=== PATIENT | male | born 1975 | race Caucasian/White ===

== ENCOUNTER 2024-07-14 20:02 | Emergency (ER) | payer MEDICAID, SELFPAY ==
[2024-07-14 20:10] VITALS: BP 159/68; PULSE 94; RESP 18; O2SAT 98
--- NOTE | 2024-07-14 20:15 | DI.RAD_ITS ---
Exam(s) XR KNEE LT 3V AP,LAT,KATALINA EXAM: XR KNEE LT 3V AP,LAT,KATALINA CLINICAL HISTORY: Pain, swelling. TECHNIQUE: 2D digital imaging was performed of the left knee. Three images were obtained. AP, late ral and PA tunnel views were obtained. COMPARISON: No exams were available for comparison FINDINGS: BONES: No acute fracture is present. No bony destructive lesion is seen. JOINTS: Minimal degenerative changes are present. There is a small joint effusion. No loose body. SOFT TISSUE: Normal. IMPRESSION: Small joint effusion. No acute fracture or dislocation. DATA REPOSITORY: RADIATION DOSE DELIVERED:
--- NOTE | 2024-07-14 20:43 | ED.GENADUL_ITS ---
Discharge Plan Disposition Patient Disposition: Home Condition: Stable Discharge Details Clinical Impression: Pain and swelling of left knee, Prepatellar effusion of left knee Primary Care Provider: Umer Kearney ED Provider: Lyssa Silvestre Home Meds and New Rx's Prescriptions: New diclofenac sodium [Arthritis Pain (diclofenac)] 1 % gel 4.5 inch topical QID PRN (Reason: pain) 7 Days Qty: 100 0RF Rx Instructions: apply to single knee, 4 times a day as needed No Action gabapentin 300 mg capsule 600 mg PO TID bupropion HCl [Wellbutrin XL] 150 mg tablet extended release 24 hr 150 mg PO DAILY Discharge Instructions Instructions: Ross's Cyst (DC), Knee Pain ED Additional Instructions: You have a small amount of fluid noted on the x-ray. No broken bones. I do suspect a Ross's cyst and possibly more internal injury. Please follow-up with orthopedics within the next 1 to 2 weeks. Wear the knee brace as needed for discomfort. Take the medication with food as directed. Rest ice compression elevation when sitting or laying down. Ice knee at least 3 times a day. Follow up with orthopedics/primary care provider in 1 to 2 weeks . Return to ED sooner if any worsening or concerns. Referrals: Humberto Cladwell MD [ [facility] STAFF PHYSICIAN] - 2 weeks HPI General Mode of arrival: ambulatory . Date/Time Provider Initiated Documentation: 07/14/24 20:14 . Limitations to Documentation: no limitations . Information obtained by: patient, RN notes reviewed and old records reviewed . 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 He also has noted a ball to his popliteal space. He reports that he has increased pain with flexion. He has been taking Tylenol and Advil at home with little to no relief. He reports that he has had trouble sleeping. He denies any calf pain no redness negative Homans' sign. He was referred to PT by his primary care which he has never gotten into. He reports that he has had a meniscus tear with repair in the past to that same knee. Denies any other associated complaints. Related Data Home Medications ?Medication ?Instructions ?Recorded ?Confirmed bupropion HCl 150 mg 24 hr tablet, 150 mg PO DAILY 07/14/24 07/14/24 extended release (Wellbutrin XL) diclofenac sodium 1 % topical gel 4.5 inch topical QID PRN pain 7 07/14/24 (Arthritis Pain (diclofenac)) days #100 grams gabapentin 300 mg capsule 600 mg PO TID 07/14/24 07/14/24 Previous Rx's ?Medication ?Instructions ?Recorded diclofenac sodium 1 % topical gel 4.5 inch topical QID PRN pain 7 07/14/24 (Arthritis Pain (diclofenac)) days #100 grams Allergies Allergy/AdvReac Type Severity Reaction Status Date / Time No Known Allergies Allergy Unverified 07/14/24 20:13 General Stated Complaint: Orthopedic PEDRO: 4 Review of Systems All systems reviewed & are unremarkable except as noted in HPI and below Musculoskeletal Musculoskeletal: Reports as per HPI, Reports arthralgias, Reports joint swelling and Denies numbness Neurologic Neurologic: Denies numbness Exam Extrem Right lower extremity: knee Left lower extremity: knee Details: abnormal to inspection, tenderness Location: of the popliteal fossa and of the medial joint line, swelling Location: of the popliteal fossa and of the pre-patellar area and abnormal ROM; no ecchymosis Course Vital Signs Vital signs: Vital Signs Pulse 94 H 07/14/24 20:10 Respiratory Rate 18 07/14/24 20:10 Blood Pressure 159/68 H 07/14/24 20:10 Pulse Oximetry 98 07/14/24 20:10 Pulse 94 H 07/14/24 20:10 Respiratory Rate 18 07/14/24 20:10 Respiratory Effort Normal 07/14/24 20:15 Blood Pressure 159/68 H 07/14/24 20:10 Pulse Oximetry 98 07/14/24 20:10 Oxygen Delivery Method Room Air 07/14/24 20:10 Oxygen Flow Rate 0 07/14/24 20:10 Pain Level 10 07/14/24 20:10 Medical Decision Making 49-year-old male presents to the ER with a chief complaint of left knee pain and swelling which she has been worsening over the last few months after a twisting type injury 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 He also has noted a ball to his popliteal space. He reports that he has increased pain with flexion. He has been taking Tylenol and Advil at home with little to no relief. He reports that he has had trouble sleeping. He denies any calf pain no redness negative Homans' sign. He was referred to PT by his primary care which he has never gotten into. He reports that he has had a meniscus tear with repair in the past to that same knee. Denies any other associated complaints. I do suspect a Ross's cyst and possibly ligamentous injury. Will place him in a hinged knee brace give diclofenac and referral to orthopedics. On exam patient does have sling noted. Distal CMS intact. Negative anterior posterior drawer test. He does have some medial joint pain with palpation. Negative Homans' sign low suspicion for DVT. Patient low risk criteria as far as Wells criteria for DVT is concerned. Three-view x-ray ordered. X-ray shows suprapatellar knee effusion, no fracture or dislocation. I do suspe ct Ross's cyst. Given a hinged knee brace instructed on RICE procedures given diclofenac prescribed Voltaren gel and placed on the orthopedic follow-up list. This text was generated using [employer] system, please disregard any oddities of phrase or misspellings. Imaging Data Radiologic Study: Imaging: X-Ray Radiologist's impression: Exam: XR Left Knee Exam date and time: 07/14/2024 8:31 PM Age: 49 years old Clinical indication: Other: Pain and swelling; Prior surgery; Surgery date: 6+ months; Surgery type: Meniscus repair 7 years ago TECHNIQUE: Imaging protocol: Radiologic exam of the left knee. Views: 3 views. COMPARISON: No relevant prior studies available. FINDINGS: Bones/joints: Small suprapatellar knee joint effusion. No fracture dislocation. Soft tissues: Normal. IMPRESSION: 1. Small suprapatellar knee joint effusion. 2. No fracture dislocation. Thank you for allowing us to participate in the care of your patient. Dictated and Authenticated by: Cindy Nichole MD Quality:SDOH Health Related Social Needs: No Data to Display PFSH All Active Problems (Updated 07/14/24 @ 21:42 by Lyssa Silvestre NP) Prepatellar effusion of left knee (Acute) Pain and swelling of left knee (Acute) Social History Smoking/Tobacco Use Status: Current every day Tobacco Type: cigarettes Smoking risk assessment performed?: Yes Alcohol Intake: former Drug use: Current Sobriety Substance use type: does not use Housing: apartment Do you feel safe at home: Yes Do you feel safe in your relationship?: Yes
--- NOTE | 2024-07-14 21:37 | DI.VRAD_ITS ---
PROCEDURE INFORMATION: Exam: XR Left Knee Exam date and time: 07/14/2024 8:31 PM Age: 49 years old Clinical indication: Other: Pain and swelling; Prior surgery; Surgery date: 6+ months; Surgery type: Meniscus repair 7 years ago TECHNIQUE: Imaging protocol: Radiologic exam of the left knee. Views: 3 views. COMPARISON: No relevant prior studies available. FINDINGS: Bones/joints: Small suprapatellar knee joint effusion. No fracture dislocation. Soft tissues: Normal. IMPRESSION: 1. Small suprapatellar knee joint effusion. 2. No fracture dislocation. Dictated and Authenticated by: Cindy Nichole MD. Ordering:JHON Omalley MD
[2024-07-14 21:48] VITALS: BP 149/69; PULSE 88; RESP 18; O2SAT 96
== END 2024-07-14 21:50 | disposition home or self-care (01) ==
PROVIDERS: Emergency Provider Registered Nurse Emergency; PCP Family Medicine
DX: M25.462 Effusion, left knee (principal); F17.210 Nicotine dependence, cigarettes, uncomplicated; M25.562 Pain in left knee
CPT/HCPCS: 73562; 99283